=== PATIENT | male | born 1950 | race Caucasian/White ===

== ENCOUNTER → 2023-11-02 15:39 | Day surgery (SDC) | payer SELFPAY ==
[2023-11-02 13:35] VITALS: BP 159/83
[2023-11-02 13:44] VITALS: BMI 34.0
[2023-11-02 17:10] VITALS: BP 153/77; BP 159/83
[2023-11-02 17:15] VITALS: BP 119/90
[2023-11-02 17:30] VITALS: BP 146/81
--- NOTE | 2023-11-02 17:44 | PTCARENOTE ---
report called to [facility], [facility], Dr. Quiros talked with pt. post procedure, pt. demonstrated understanding. Pt. stable for transfer back to [place], awaiting time from ambulance.
[2023-11-02 17:45] VITALS: BP 146/75
[2023-11-02 18:00] VITALS: BP 146/80
== END ==
LOC: SDS 15:39
PROVIDERS: ATTENDING PHYSICIAN Internal Medicine Gastroenterology; FAMILY PHYSICIAN Family Medicine
DX: K83.09 Other cholangitis (principal); R78.81 Bacteremia; R76.8 Other specified abnormal immunological findings in serum; K86.9 Disease of pancreas, unspecified; K80.20 Calculus of gallbladder without cholecystitis without obstruction
CPT/HCPCS: 43274; 43237; 43262; 74330; 76000; C1769; C2617

== ENCOUNTER 2023-12-15 06:20 | Day surgery (SDC) | payer OTHER, SELFPAY ==
[2023-12-15 13:21] VITALS: BMI 32.1
[2023-12-15 13:22] VITALS: BP 164/94; BMI 32.1
[2023-12-15 14:35] VITALS: BP 155/91
[2023-12-15 14:45] VITALS: BP 155/76
[2023-12-15 15:00] VITALS: BP 148/72
== END 2023-12-15 15:24 | disposition home or self-care (01) ==
LOC: GI 06:20
PROVIDERS: ATTENDING PHYSICIAN Internal Medicine Gastroenterology
DX: Z46.59 Encounter for fitting and adjustment of other gastrointestinal appliance and device (principal)
CPT/HCPCS: 43247